=== PATIENT | female | born 1960 | race Caucasian/White ===

== ENCOUNTER → 2016-07-22 | Outpatient (CLI) | payer MEDICARE, OTHER ==
[2014-02-27 14:36] VITALS: BP 128/65
[~2016-07-22] MED LIST: BUSP15TA PO; CELE200C PO; CITA20TA5 PO; CYCL10TA2 PO; HYDR200T5 PO; LACT10SO26 PO; LINA290C PO; METO50TA2 PO; TRAM50TA PO; TRAZ100T12 PO
--- NOTE | 2016-07-22 09:55 | KCIC ---
Two-view bilateral hips dated 07/22/2016. No comparison available. Clinical indication: Chronic bilateral hip pain right greater than left. FINDINGS: 2 views bilateral hips show normal bony alignment. No displaced fracture. Mild hypertrophic change at both hip joints, left greater than right. Mild hypertrophic change at the bilateral SI joints and pubic symphysis. No erosive changes or bone destruction. IMPRESSION: 1. No acute radiographic abnormality. 2. Mild degenerative changes as described above. Electronically signed by: Young Gomez MD (07/22/2016 9:52 AM)
--- NOTE | 2016-07-22 11:47 | KCIC ---
INDICATION: Radicular pain to both hips. Low back pain. Symptoms for many years. No known injury. No prior surgery. TECHNIQUE: Sagittal T1, sagittal T2, sagittal STIR, axial T1, and axial T2 sequences are provided. No comparison is available. FINDINGS: There is 3 mm of anterolisthesis at L4-L5. There is otherwise no malalignment. There is no worrisome marrow lesion. There is minimal endplate edema which appears degenerative involving the inferior endplates of T11 and T12 anteriorly. There is disc desiccation. The conus medullaris is normal in signal intensity and in position. The numbering system assumes 5 lumbar type vertebral bodies. Findings by individual level are as follows: T12-L1: There is a mild disc bulge without canal or foraminal compromise. L1-L2: There is a minimal disc bulge without canal or foraminal compromise. L2-L3: There is a mild disc bulge. There is a lesion that appears relatively hyperintense to adjacent disc on T1 and T2 sequences. This lesion appears to be extradural and is in a right paracentral/subarticular location. The lesion migrates both above and below the interspace, measuring 2.7 x 1.0 x 1.1 cm in the CC, AP, and transverse planes. This could represent a large herniated disc, possibly sequestered given different signal characteristics compared to the adjacent interspace. There is no narrowing of the L2-L3 interspace, an extradural mass such as nerve sheath tumor also could be considered. Postcontrast imaging may be of benefit in this patient. Findings severely narrows the right lateral recess. It would explain a right L3 radiculopathy. There is no canal stenosis. There is mild foraminal narrowing bilaterally. L3-L4: There is a mild disc bulge without canal stenosis. There is minimal foraminal narrowing. L4-L5: In addition to the slight anterolisthesis there is a disc bulge and facet hypertrophy. There is mild lateral recess narrowing bilaterally. Foraminal narrowing is [id number]. L5-S1: Disc bulge and facet hypertrophy are noted with minimal foraminal narrowing. IMPRESSION: Large right paracentral/subarticular lesion at the level of L2-L3 on the right, appears to be extradural. This narrows the lateral recess and would explain a right L3 radiculopathy. Differential considerations would include disc herniation, possibly sequestered, or mass such as nerve sheath tumor. Postcontrast imaging may be of benefit in this patient. Electronically signed by: Peter Montano MD (07/22/2016 11:44 AM)
== END | disposition home or self-care (01) ==
LOC: KCIC MRI 09:03
PROVIDERS: ATTEND Anesthesiology Pain Medicine
DX: M54.16 Radiculopathy, lumbar region (principal); M16.0 Bilateral primary osteoarthritis of hip; G89.29 Other chronic pain
CPT/HCPCS: 72148; 73502

== ENCOUNTER → 2016-08-06 | Outpatient (CLI) | payer MEDICARE, OTHER ==
[2014-02-27 14:36] VITALS: BP 128/65
[~2016-08-06] MED LIST changes: +GADOBUTROL 10 MMOL/10 ML VIAL IV ONE
--- NOTE | 2016-08-06 16:47 | KCIC ---
MRI lumbar spine Indication: Abnormal finding on previous MRI COMPARISON: Noncontrast MRI lumbar spine from July 22, 2016 TECHNIQUE: Pre and postcontrast T1-weighted imaging was performed through the lumbar spine in the axial sagittal planes before and after intravenous administration of gadolinium based contrast. FINDINGS: At the level of L2-L3, there is an extradural nonenhancing mass in the right lateral spinal canal at approximately the level of the L2-L3 foramen. The exiting the L2 and L3 nerves adjacent to this mass appear mildly displaced but not intimately associated with it. The leading consideration for this finding is a sequestered disc with enhancing epidural plexus surrounding it. Heterogeneously enhancing tumor is considered less likely but follow-up is recommended if managed conservatively. 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 The exiting the L2 and L3 nerves adjacent to this mass appear mildly displaced but not intimately associated with it. The leading consideration for this finding is a sequestered disc with enhancing epidural plexus surrounding it. Heterogeneously enhancing tumor is considered less likely, but follow-up is recommended if managed conservatively. Electronically signed by: Ronnie Ivory MD (08/06/2016 4:45 PM)
== END | disposition home or self-care (01) ==
LOC: KCIC MRI 15:02
PROVIDERS: ATTEND Anesthesiology Pain Medicine
DX: M54.16 Radiculopathy, lumbar region (principal)
CPT/HCPCS: 72149; A9585

== ENCOUNTER → 2016-08-11 | Outpatient (CLI) | payer MEDICARE, OTHER ==
[2014-02-27 14:36] VITALS: BP 128/65
[~2016-08-11] MED LIST changes: -GADOBUTROL 10 MMOL/10 ML VIAL IV ONE
--- NOTE | 2016-08-11 10:14 | KCIC ---
MRI Cervical Spine Without Contrast History: Cervical and thoracic radiculitis, neck pain, stiffness, crepitus Technique: Multiplanar, multi sequential noncontrast MR imaging was performed of the cervical spine. Comparison: None Findings: There is some motion degradation. Cervical cord caliber is within normal limits without convincing or expansile signal abnormality, limited evaluation for subtle subluxation of motion artifact. There is no significant abnormality of the cervical medullary junction. There is moderate to severe degenerative disc disease C5-C6 and C4-5. There is nonspecific mild reversal of the lordotic curvature centered at C5. There is negligible anterior spondylolisthesis C4-5, also grade 1 anterior spondylolisthesis at T1-T2. C2-C3: Neural foramina and spinal canal are adequate. There is mild facet degenerative change. C3-C4: There is moderate facet degenerative change. Spinal canal and neural foramina are adequate. C4-C5: There is very shallow posterior bulge/broad protrusion.Spinal canal and neural foramina are adequate. There is moderate right and mild left facet hypertrophic change. C5-C6: There is minimal disc osteophyte complex, superimposed shallow protrusion eccentric to the far lateral recess. Central canal is adequate at 13 mm, mild narrowing of the lateral recesses greater on the right. Right neural foramen is overall adequate. There is moderate to severe narrowing of the left neural foramen. C6-C7: Neural foramina and spinal canal are adequate. C7-T1: Normal foramina and spinal canal are adequate. There is left greater than right facet hypertrophic change. Impression: 1. There is no significant cervical spinal stenosis, mild narrowing of the far lateral recesses greater on the right at C5-C6. There is narrowing of the left C5-C6 neural foramen. 2. There is moderate to severe degenerative disc disease at C4-5 and C5-C6. 3. There is segmental mild reversal of the lordotic curvature, also negligible anterior spondylolisthesis C4-5. Electronically signed by: Lauro Ochoa MD (08/11/2016 10:11 AM)
--- NOTE | 2016-08-11 10:35 | KCIC ---
MRI Thoracic Spine without contrast History: Cervical and thoracic radiculitis, neck pain and stiffness, crepitus Technique: Sagittal T1, sagittal STIR, limited axial T2 and axial T1, and sagittal T2 weighted images were acquired of the thoracic spine. Contrast: None Comparison: None Findings: Thoracic vertebral body stature is maintained. There is grade 1 anterior spondylolisthesis of at T1-T2, negligible anterior spondylolisthesis at T4-5. Thoracic cord caliber is within normal limits without convincing focal signal abnormality allowing for mild artifact. There is no significant thoracic spinal stenosis at any level. There are negligible posterior central protrusions T7-T8 and T8-T9. Thoracic neural foramina are not severely narrowed, mild narrowing from posteriorly by facets at T9-T10. There is mild degenerative disc disease greatest at T9-T10, mild disc desiccation at other levels centered about the mid thoracic spine. There is mild edema of the anterior inferior corner of T12, very minimally at T11, likely reactive/degenerative in etiology. Approximate 0.5 cm lung nodule of the superior left lower lobe is possible. Impression: 1. There is no significant thoracic spinal stenosis or neural foramina compromise. There is multilevel mild degenerative disc disease. Minimal edema of the anterior-inferior corners of T12 and T11 is likely reactive/degenerative in etiology. 2. Small 0.5 cm lung nodule of the superior left lower lobe is possible although otherwise difficult to characterize by this exam given artifact. Electronically signed by: Lauro Ochoa MD (08/11/2016 10:32 AM)
== END | disposition home or self-care (01) ==
LOC: KCIC MRI 07:42
PROVIDERS: ATTEND Anesthesiology Pain Medicine
DX: M54.12 Radiculopathy, cervical region (principal); M54.14 Radiculopathy, thoracic region; M50.321 Other cervical disc degeneration at C4-C5 level; M50.322 Other cervical disc degeneration at C5-C6 level; M51.34 Other intervertebral disc degeneration, thoracic region
CPT/HCPCS: 72141; 72146